=== PATIENT | female | born 1980 | race Caucasian/White ===

== ENCOUNTER 2022-11-06 09:12 | Day surgery (SDC) | payer SELFPAY ==
[2022-10-31 15:16] VITALS: BMI 29.2
[2022-11-06] MEDS ORDERED: EPINEPHrine/PF 1 MG/1 ML (1:1,000) AMPULE ONE (10:51)
[2022-11-06] MEDS ORDERED: BUPIVACAINE HCL/PF 2.5 MG/ML - 30 ML VIAL IJ ONE ×2 (10:52→15:18)
[2022-11-06] MEDS ORDERED: BACITRACIN ZINC 15 GM TUBE TOPICAL OINTMENT ONE (10:52)
[2022-11-06] MEDS ORDERED: BUPIVACAINE HCL/PF 0.25% (2.5MG/ML) 10 ML VIAL ONE ×2 (10:52→15:18)
[2022-11-06] MEDS ORDERED: LIDOCAINE HCL 1%, 10 MG/ML (20ML VIAL) ONE (10:52)
[2022-11-06] MEDS ORDERED: GUM MASTIC/STORAX/MSAL/ALCOHOL 1 DRP DROPSBTL MC ONE (10:53)
[2022-11-06] MEDS ORDERED: ROCURONIUM BROMIDE 50 MG/5 ML SYRINGE ONE (12:16)
[2022-11-06] MEDS ORDERED: LIDOCAINE HCL/PF 2% SDV 5ML VIAL ONE (12:16)
[2022-11-06] MEDS ORDERED: PROPOFOL 20 ML ONE (12:16)
[2022-11-06] MEDS ORDERED: MIDAZOLAM HCL 2 MG/2 ML SINGLE DOSE VIAL ONE (12:17)
[2022-11-06] MEDS ORDERED: ONDANSETRON 4 MG/2 ML VIAL IVPUSH PRN ×2 (12:20→18:40)
[2022-11-06] MEDS ORDERED: ZOLPIDEM TARTRATE 5 MG TABLET PO PRN (12:20)
[2022-11-06] MEDS ORDERED: DOCUSATE SODIUM 100 MG CAPSULE (FP) PO PRN (12:23)
[2022-11-06] MEDS ORDERED: HYDROmorphone HCL CARPU-JECT 2 MG/1 ML DISP.SYRIN IVPB PRN (12:25)
[2022-11-06] MEDS ORDERED: LACTATED RINGERS SOLUTION 1,000 ML IV SCH ×2 (12:30→18:45)
[2022-11-06] MEDS ORDERED: HYDROmorphone HCl 2 MG/ML VIAL IVPB PRN (12:42)
[2022-11-06] MEDS ORDERED: ceFAZolin SODIUM 1 GM VIAL ONE (12:58)
[2022-11-06] MEDS ORDERED: ONDANSETRON 4 MG/2 ML VIAL ONE ×2 (13:49→17:48)
[2022-11-06] MEDS ORDERED: DEXAMETHASONE SOD PHOSPHATE 4 MG/1 ML VIAL ONE (13:49)
[2022-11-06] MEDS ORDERED: HYDROmorphone HCL/PF 1 MG/ML VIAL ONE (14:32)
[2022-11-06] MEDS ORDERED: ePHEDrine SULFATE 50 MG/1 ML AMPULE ONE (14:46)
[2022-11-06] MEDS ORDERED: BUPIVACAINE HCL/PF 0.25% (2.5MG/ML) 10 ML VIAL IJ ONE (15:57)
[2022-11-06] MEDS: CEFAZOLIN 1 GM in DEXTROSE 5%-WATER - 50 ML IVPB SCH ×2 (19:29→21:39)
[2022-11-06] MEDS ORDERED: ENOXAPARIN NA (PORCINE) 40 MG/0.4 ML DISP.SYRIN SQ ONE (23:00)
[2022-11-07] MEDS: CEFAZOLIN 1 GM in DEXTROSE 5%-WATER - 50 ML IVPB SCH ×2 (03:11→09:36)
[2022-11-07] MEDS: oxyCODONE HCL 5 MG TABLET PO PRN ×4 (03:21→18:12)
[2022-11-07] MEDS: ACETAMINOPHEN 325 MG TABLET (FP) PO PRN ×3 (03:22→14:47)
[2022-11-07 18:18] VITALS: BP 108/56; PULSE 84; RESP 17; TEMP 99.3
== END 2022-11-07 19:26 | disposition home or self-care (01) ==
LOC: FASU 09:12 → FM/S 20:57 → FASU 11-07 19:26
PROVIDERS: ATTEND Surgery
CPT/HCPCS: 84703; 94760